=== PATIENT | female | born 1945 | race Caucasian/White ===

== ENCOUNTER 2019-11-30 08:36 | Emergency (ER) | payer MEDICARE, OTHER ==
[~2019-11-30] VITALS: Ht 165.1 cm; Wt 62.0 kg
[~2019-11-30 08:36] MED LIST: ALBU8.5H8 IH; APIX5TAB PO; FLUT10.6 INH; METO25TA91 PO; MONT10TA11 PO
--- NOTE | 2019-11-30 08:50 | NUR ---
"SEEN HERE ABOUT A WEEK AGO. I FELT GOOD THIS AM, THEN MY LEGS STARTED GETTING WEAKER. THE LONGER I WALKED THE WEAKER I GOT. MY ARMS AND LEGS STARTED FEELING WEAK. FELT LIKE JELLY, NO STRENGTH" Recently started on bb for afib no focal deficits, vss on security monitor, ecg obtained
--- NOTE | 2019-11-30 09:23 | NUR ---
cc ua sent (able to walk to restroom without increase in dizziness) piv placed from which labs were drawn
--- NOTE | 2019-11-30 09:25 | NUR ---
PATIENT REQUESTED LEFT ARM PIV (DESPITE HX OF LEFT SIDED MASECTOMY" THEY GO THERE ALL THE TIME. THERE IS NO PROBLEM."
[2019-11-30 09:28] LABS: BASOPHILS # (AUTO) 0.03 x10^3/uL (0-0.1); BASOPHILS % (AUTO) 0 % (0-1); EOSINOPHILS % (AUTO) 4 % (1-7); LYMPHOCYTES # (AUTO) 1.56 x10^3/uL (1-3.4); LYMPHOCYTES % (AUTO) 19 % (22-44); MD NO; MEAN CORPUSCULAR HEMOGLOBIN 29.7 pg (27.0-34.8); MEAN CORPUSCULAR HGB CONC 32.2 g/dL (32.4-35.8); MONOCYTES # (AUTO) 0.34 x10^3/uL (0.2-0.8); MONOCYTES % (AUTO) 4 % (2-9); NEUTROPHILS # (AUTO) 5.85 x10^3/uL (1.8-6.8); NEUTROPHILS % (AUTO) 72 % (42-75); PLATELET COUNT 251 x10^3/uL (130-400); RED BLOOD COUNT 5.04 x10^6/uL (3.82-5.3); RED CELL DISTRIBUTION WIDTH 13.7 % (9.6-15.2)
--- NOTE | 2019-11-30 09:29 | NUR ---
While at rest in bed- sudden onset in lightheaded dizziness. vss (65, sbp 135). Provider made aware
[2019-11-30 09:31] LABS: MICROSCOPIC NOT IND
[2019-11-30 09:37] LABS: ANION GAP 4 mmol/L (5-15); CALCIUM 9.9 mg/dL (8.5-10.1); CHLORIDE 108 mmol/L (98-107); CREATININE 0.66 mg/dL (0.55-1.02)
[2019-11-30] MEDS ORDERED: ONDANSETRON 2MG/ML, 2ML ONE (10:06)
--- NOTE | 2019-11-30 10:09 | NUR ---
NOW NAUSEATED-MEDICATED WITH ZOFRAN VITALS REMAIN STABLE UPDATED ON ESTIMATED POC
[2019-11-30 10:10] VITALS: BP 121/58
[2019-11-30 10:13] LABS: TROPONIN I < 0.015 ng/mL (0.000-0.045)
[2019-11-30] MEDS ORDERED: ONDANSETRON 2MG/ML, 2ML IVPush ONE (10:30)
[2019-11-30] MEDS ORDERED: ONDANSETRON ODT 4 MG PO ONE (10:30)
== END 2019-11-30 11:06 | disposition home or self-care (01) ==
LOC: ED 09:36
DX: R42 Dizziness and giddiness (principal); J45.909 Unspecified asthma, uncomplicated; I48.91 Unspecified atrial fibrillation; Z85.3 Personal history of malignant neoplasm of breast
CPT/HCPCS: 36415; 71045; 80048; 81003; 82040; 84484; 85025; 93005; 99285; J2405

== ENCOUNTER 2019-12-02 02:15 | Observation (INO) | payer MEDICARE, OTHER ==
[~2019-12-02] VITALS: Ht 165.1 cm; Wt 64.8 kg
[2019-12-02] MEDS ORDERED: NITROGLYCERIN SINGLE TAB 0.4 MG SL ONE ×2 (02:54→03:45)
[2019-12-02] MEDS ORDERED: ASPIRIN 81 MG TABLET CHEW ONE (02:54)
[2019-12-02] MEDS: NITROGLYCERIN SINGLE TAB 0.4 MG SL PRN ×2 (02:56→03:46)
--- NOTE | 2019-12-02 02:57 | NUR ---
THIS IS A 74Y F THAT COMES IN TONIGHT FOR CP STARTING ON LEFT AND RADIATING TO ARM, AND JAW. PER PT SHE WAS AWOKEN BY THIS. PT VSS UPON ARRIVAL TO ER. PT A/O4. PT RECENTLY DX WITH AFIB, PT COMPLIANT WITH MEDICATIONS. PT CONNECTED TO ALL MONITORING VSS NADN. CALL LIGHT IN REACH
[2019-12-02] MEDS ORDERED: SODIUM CHLORIDE FLUSH 10ML SYR IVF ONE (03:00)
[2019-12-02] MEDS ORDERED: ASPIRIN 81 MG TABLET CHEW PO ONE (03:00)
--- NOTE | 2019-12-02 03:14 | NUR ---
PT REPORTS CP IMPROVEMENT AFTER 1ST NITRO
--- NOTE | 2019-12-02 03:23 | NUR ---
PT AMB TO RESTROOM WITH AT THIS TIME
[2019-12-02 03:30] LABS: ALANINE AMINOTRANSFERASE 39 U/L (12-78); ALBUMIN 3.6 g/dL (3.4-5.0); ANION GAP 3 mmol/L (5-15); CALCIUM 9.6 mg/dL (8.5-10.1); CHLORIDE 107 mmol/L (98-107); CREATININE 0.66 mg/dL (0.55-1.02)
[2019-12-02 03:34] LABS: ALKALINE PHOSPHATASE 106 U/L (45-117); BILIRUBIN,TOTAL 0.5 mg/dL (0.2-1.0); TOTAL PROTEIN 7.9 g/dL (6.4-8.2); TROPONIN I < 0.015 ng/mL (0.000-0.045)
--- NOTE | 2019-12-02 03:40 | NUR ---
PT RESTING ON EDGAR AT BEDSIDE SONYA
[2019-12-02 04:11] LABS: <RBC MORPHOLOGY> NORMAL; BASOPHILS # (AUTO) 0.03 x10^3/uL (0-0.1); BASOPHILS % (AUTO) 1 % (0-1); EOSINOPHILS % (AUTO) 6 % (1-7); LYMPHOCYTES # (AUTO) 2.27 x10^3/uL (1-3.4); LYMPHOCYTES % (AUTO) 36 % (22-44); MD MORPH REVIEW ONLY; MEAN CORPUSCULAR HEMOGLOBIN 29.6 pg (27.0-34.8); MEAN CORPUSCULAR HGB CONC 32.6 g/dL (32.4-35.8); MEAN PLATELET VOLUME 9.7 fL (7.4-10.4); MONOCYTES % (AUTO) 6 % (2-9); NEUTROPHILS # (AUTO) 3.19 x10^3/uL (1.8-6.8); NEUTROPHILS % (AUTO) 51 % (42-75); PLATELET COUNT 242 x10^3/uL (130-400); RED BLOOD COUNT 4.71 x10^6/uL (3.82-5.3); RED CELL DISTRIBUTION WIDTH 13.4 % (9.6-15.2)
[2019-12-02 04:12] LABS: <PLATELET ESTIMATE> ADEQUATE; LARGE PLATELETS 1+
--- NOTE | 2019-12-02 05:03 | NUR ---
report to simin jose pt ready for transport to floor at this time
[2019-12-02 05:27] VITALS: BP 133/71
[2019-12-02] MEDS ORDERED: NITROGLYCERIN 0.4 MG BOTTLE (25 TABS) SL PRN (05:30)
[2019-12-02] MEDS ORDERED: morphine SULFATE 10 MG/ML, 1ML IVPush PRN (05:30)
[2019-12-02] MEDS ORDERED: NITROGLYCERIN 0.4 MG/SPRAY SL PRN (05:30)
[2019-12-02] MEDS ORDERED: morphine SULFATE 10 MG/ML, 1ML IV PRN (05:30)
[2019-12-02] MEDS ORDERED: OMNIPAQUE 350 MG/ML, 75ML BOTTLE ONE (05:52)
[2019-12-02 06:20] LABS: CHOLESTEROL, TOTAL 234 mg/dL (140-239); TRIGLYCERIDES 76 mg/dL (50-200); VLDL CHOLESTEROL 15 mg/dL (0-25)
[2019-12-02 06:23] LABS: CHOL/HDL RATIO 3.9; HDL CHOL % 26 % (28-40); HDL CHOLESTEROL (DIRECT) 60 mg/dL (40-60); LDL CHOLESTEROL,CALCULATED 159 mg/dL (54-169); LDL/HDL RATIO 2.7 (0.5-3.0); TROPONIN I < 0.015 ng/mL (0.000-0.045)
[2019-12-02 06:30] VITALS: BP 108/65
[2019-12-02] MEDS ORDERED: ATOR20TA86 PO (07:54)
[2019-12-02 08:48] LABS: TROPONIN I < 0.015 ng/mL (0.000-0.045)
[2019-12-02] MEDS ORDERED: APIXABAN 5 MG TABLET PO SCH (09:00)
[2019-12-02] MEDS ORDERED: SODIUM CHLORIDE FLUSH 10ML SYR IVF SCH (09:00)
[2019-12-02] MEDS ORDERED: REGADENOSON 0.4 MG/5 ML SYRINGE ONE (10:29)
[2019-12-02 14:20] VITALS: BP 98/57
[2019-12-02] MEDS ORDERED: MONTELUKAST 10 MG TABLET PO SCH (21:00)
[2019-12-03] MEDS ORDERED: ASPIRIN 325 MG TABLET EC PO SCH (06:00)
== END 2019-12-02 16:40 | disposition home or self-care (01) ==
LOC: ED 03:46 → INTOOBSV 04:34 → EDIP 04:34 → 5SO 05:23 → DCLOUNGE 16:33
PROVIDERS: ADMIT Family Medicine; ATTEND Hospitalist
DX: R07.89 Other chest pain (principal); I48.0 Paroxysmal atrial fibrillation; E78.5 Hyperlipidemia, unspecified; J45.909 Unspecified asthma, uncomplicated; I35.1 Nonrheumatic aortic (valve) insufficiency; I51.89 Other ill-defined heart diseases; D68.69 Other thrombophilia; Z85.3 Personal history of malignant neoplasm of breast; Z79.01 Long term (current) use of anticoagulants; Z90.12 Acquired absence of left breast and nipple; Z86.718 Personal history of other venous thrombosis and embolism; Z79.899 Other long term (current) drug therapy
CPT/HCPCS: 36415; 71045; 71275; 78452; 80053; 80061; 84443; 84484; 85025; 93005; 93017; 99285; A9502; G0378; J2785; Q9967

== ENCOUNTER → 2019-12-21 | Outpatient (CLI) | payer MEDICARE, OTHER ==
[~2019-12-21] MED LIST changes: +ATOR20TA86 PO
== END | disposition home or self-care (01) ==
LOC: CFH 10:17
PROVIDERS: ATTEND Internal Medicine Cardiovascular Disease
DX: Z13.6 Encounter for screening for cardiovascular disorders (principal); E78.00 Pure hypercholesterolemia, unspecified; J84.10 Pulmonary fibrosis, unspecified; I77.810 Thoracic aortic ectasia; I25.10 Atherosclerotic heart disease of native coronary artery without angina pectoris
CPT/HCPCS: 75571

== ENCOUNTER 2020-01-05 09:35 | Emergency (ER) | payer MEDICARE, OTHER ==
[~2020-01-05] VITALS: Ht 165.1 cm; Wt 62.7 kg
[2020-01-05] MEDS ORDERED: LORazepam 2 MG/ML, 1ML IVPush ONE (10:00)
[2020-01-05] MEDS ORDERED: SODIUM CHLORIDE FLUSH 10ML SYR IVF ONE (10:00)
[2020-01-05] MEDS ORDERED: KETOROLAC 30 MG/1 ML IVPush ONE (10:00)
[2020-01-05] MEDS ORDERED: KETOROLAC 30 MG/1 ML ONE (10:03)
[2020-01-05] MEDS ORDERED: LORazepam 2 MG/ML, 1ML ONE (10:03)
[2020-01-05 10:09] LABS: BASOPHILS % (AUTO) 1 % (0-1); EOSINOPHILS % (AUTO) 5 % (1-7); LYMPHOCYTES % (AUTO) 24 % (22-44); MD NO; MEAN CORPUSCULAR HEMOGLOBIN 29.6 pg (27.0-34.8); MEAN CORPUSCULAR HGB CONC 32.5 g/dL (32.4-35.8); MEAN PLATELET VOLUME 8.9 fL (7.4-10.4); MONOCYTES % (AUTO) 6 % (2-9); NEUTROPHILS % (AUTO) 65 % (42-75); PLATELET COUNT 215 x10^3/uL (130-400); RED BLOOD COUNT 4.41 x10^6/uL (3.82-5.3); RED CELL DISTRIBUTION WIDTH 13.1 % (9.6-15.2)
--- NOTE | 2020-01-05 10:13 | NUR ---
PT TO BATHROOM INDEPENDENTLY WITH A STEADY GAIT. UA OBTAINED.
[2020-01-05 10:18] LABS: ALANINE AMINOTRANSFERASE 22 U/L (12-78); ALBUMIN 3.5 g/dL (3.4-5.0); ANION GAP 6 mmol/L (5-15); CALCIUM 8.7 mg/dL (8.5-10.1); CHLORIDE 107 mmol/L (98-107); CREATININE 0.65 mg/dL (0.55-1.02)
[2020-01-05 10:22] LABS: ALKALINE PHOSPHATASE 85 U/L (45-117); BILIRUBIN,TOTAL 0.5 mg/dL (0.2-1.0); TOTAL PROTEIN 7.4 g/dL (6.4-8.2); TROPONIN I < 0.015 ng/mL (0.000-0.045)
[2020-01-05 11:45] LABS: TROPONIN I < 0.015 ng/mL (0.000-0.045)
[2020-01-05 11:52] VITALS: BP 118/61
== END 2020-01-05 12:21 | disposition home or self-care (01) ==
LOC: ED 09:56
DX: R07.89 Other chest pain (principal); I48.91 Unspecified atrial fibrillation; E78.5 Hyperlipidemia, unspecified; Z86.718 Personal history of other venous thrombosis and embolism; Z90.10 Acquired absence of unspecified breast and nipple
CPT/HCPCS: 36415; 71045; 80053; 83690; 84484; 85025; 85379; 93005; 96374; 96375; 99285; J1885; J2060

== ENCOUNTER → 2020-05-07 | Outpatient (CLI) | payer MEDICARE, OTHER ==
[~2020-05-07] MED LIST changes: -MONT10TA11 PO; +MONT10TA17 PO
== END | disposition home or self-care (01) ==
LOC: CFH 09:46
PROVIDERS: ATTEND Family Medicine
DX: M81.0 Age-related osteoporosis without current pathological fracture (principal)
CPT/HCPCS: 77080